=== PATIENT | male | born 2000 | race Caucasian/White ===

== ENCOUNTER 2024-12-17 09:26 | Outpatient (REF) | payer BC, SELFPAY ==
[2024-12-17 11:31] LABS: MANUAL DIFF FLAG NO
[2024-12-17 11:52] LABS: Hematocrit 44.9 % (42.0-52.0); Hemoglobin 15.8 g/dl (14.0-18.0); Imm Gran Abs Auto 0.04 X10*3/uL (0.00-0.03); Imm Gran Pct Auto 0.4 % (0.0-0.4); Lymphocytes Absolute Auto 1.3 X10*3/uL (1.2-4.9); Mean Corpuscular HGB Conc 35.2 g/dl (31.0-36.0); Mean Corpuscular Hemoglobin 32.5 pg (27.0-33.0); Mean Corpuscular Volume 92.4 fL (80.0-98.0); NRBC Abs Auto 0.000 X10*3/uL (0.0-0.012); NRBC Pct Auto 0.0 /100WBC (0.0-0.2); Platelet Count 223 X10*3/uL (160-400); Red Blood Count 4.86 X10*6/uL (4.60-5.80); White Blood Count 9.5 X10*3/uL (4.8-10.8)
[2024-12-17 12:16] LABS: Appearance Urine Clear; Glucose Urine UA Negative (Negative); PH 6.0 (5.0-9.0); Specific Gravity - Urine 1.025 (1.005-1.025)
[2024-12-17 12:51] LABS: Alanine Aminotransferase 42 U/L (0-40); Albumin Level 5.3 g/dL (3.5-5.0); Alkaline Phosphatase 111 U/L (39-117); Anion Gap 15 (12-20); Aspartate Amino Transferase 33 U/L (5-37); Blood Urea Nitrogen 12 mg/dL (9-16); Calcium 10.2 mg/dL (8.4-10.2); Carbon Dioxide 27 mmol/L (22-29); Chloride 104 mmol/L (96-108); Cholesterol 201 mg/dL (<200); Estimated Glomerular Filt Rate > 60; HDL Cholesterol 53 mg/dL (>40); Potassium 4.1 mmol/L (3.3-5.1); Sodium 142 mmol/L (135-145); Total Protein 8.5 g/dL (6.5-8.0); Triglycerides 104 mg/dL (<150)
[2024-12-18 19:38] LABS: Transglutaminase Ab IgG <1.0 U/mL
== END 2024-12-17 09:27 | disposition home or self-care (01) ==
LOC: HO.LAB 09:26
DX: K52.9 Noninfective gastroenteritis and colitis, unspecified (principal); K92.1 Melena; R14.0 Abdominal distension (gaseous); R03.0 Elevated blood-pressure reading, without diagnosis of hypertension; R19.5 Other fecal abnormalities; F41.9 Anxiety disorder, unspecified; B07.0 Plantar wart; Z76.89 Persons encountering health services in other specified circumstances
CPT/HCPCS: 36415; 80053; 80061; 81003; 84443; 85025; 85652; 86141; 86364; 96127

== ENCOUNTER 2024-12-17 09:26 | Outpatient (AMB) | payer BC, SELFPAY ==
[2024-12-17 09:33] VITALS: BP 160/90; PULSE 105; RESP 18; TEMP 36.3; O2SAT 99; BMI 29.4
--- NOTE | 2024-12-17 09:33 | MHC.PC.OV ---
Vital Signs 12/17/24 09:33 Height 5 ft 11 in Weight 211 lb BMI 29.4 BP 160/90 H Blood Pressure Location Rt brachial Position Sitting Respiration 18 Pulse 105 H Pulse Source Pulse Oximeter Temp 97.3 F Temp Source Temporal Artery Scan Pulse Oximetry (%) 99 Oxygen Delivery Method Room Air Intake Visit Reasons: establish care Emergency Room Specialist Required: No Accompanied by: Self / Same As Patient Allergies No Known Allergies Allergy (Verified 12/17/24 10:11) Medication List - Last Reconciled 12/17/24 by DERIAN Duvall No Known Home Meds Tobacco use date assessed: 12/17/24 Dental Screening Dental Screen Date: 12/17/24 Did you have a dental visit in the last 12 months?: Yes Did you have a dental problem in the last 6 months where you did not have access to dental care?: No Was dental information given to patient?: Patient has dentist HPI establish care HPI Details [facility] PCP:[facility] Last visit: Last PE:1999 when he was 16 years old Specialist: no OBGYN:n/a Past medical history: anxiety, blood red in the stool/toilet will happens for couple days, then every month and half. Medications: Family HX:anxiety and depression mother, Father HTN Problem: The patient is a 24-year-old male presenting to [facility] with concerns of rectal bleeding and plantar warts. The patient reports experiencing rectal bleeding intermittently, with bright red blood observed in the toilet during bowel movements. This bleeding occurs sporadically, sometimes lasting for a few days and recurring approximately every month and a half. He denies any associated pain during bowel movements but mentions occasional stomach discomfort resembling hunger pangs. The patient also reports the presence of plantar warts on the soles of his feet, which he attempted to treat with cahy-ehk-qahbtca remedies without success. He has been advised to seek podiatric consultation for further management. The patient has a history of anxiety, which he believes contributes to elevated blood pressure readings during medical visits. He has not been on any formal treatment for anxiety but has previously engaged in phone therapy sessions during periods of high stress. His family history includes anxiety and depression on his mother's side, as well as hypertension. [facility] Medical History (Updated 12/19/24 @ 21:43 by DERIAN Duvall) History of flexible sigmoidoscopy Anxiety Family History Father Age: 61 Hypertension Mother Age: 59 Depression Anxiety Social History Household Members: Family Both parents involved: Yes Housing: House Alcohol intake: current Patient Tobacco Use Status: Never used Tobacco e-Cigarette/Vaping Use: Never Used service: No Current occupational status: employed Current occupation: [employer] Cognitive needs: No Hearing needs: No Vision needs: Yes Questionnaire PHQ-9 Over the last 2 weeks, how often have you been bothered by any of the following problems? 1. Little interest or pleasure in doing things: not at all 2. Feeling down, depressed, or hopeless: not at all 3. Trouble falling or staying asleep, or sleeping too much: several days 4. Feeling tired or having little energy: several days 5. Poor appetite or overeating: several days 6. Feeling bad about yourself - or that you are a failure or have let yourself or your family down: not at all 7. Trouble concentrating on things, such as reading the newspaper or watching television: not at all 8. Moving or speaking so slowly that other people could have noticed. Or the opposite - being so fidgety or restless that you have been moving around a lot more than usual: not at all 9. Thoughts that you would be better off or of hurting yourself in some way: not at all Total score: 3 Depression Screening Interpretation: Negative Depression Screening Done: Yes 79257 - PHQ-9 Billing: Yes Source: Developed by Drs. Michael Clinton, Domitila Thorne, Peng Oshea and colleagues, with an educational christiane from [employer]. Thrive Questionnaire Date Thrive assessed: 12/17/24 I am a: Patient What is your living situation today?: I have a steady place to live Within the past 12 months, did the food you bought not last and you didn't have the money to get more?: Never true Within the past 12 months, did you worry whether your food would run out before you got money to buy more?: Never true Do you have trouble paying for medicines?: No Do you have trouble getting transportation to medical appointments?: No Do you have trouble paying your heating and electricity bill?: No Do you have trouble taking care of your child, family member or friend?: No Do you have trouble with day-to-day activities such as bathing, preparing meals, shopping, managing finances, etc.?: No Are you currently unemployed and looking for a job?: No Are you interested in more education?: No Please select the resources that you would like help with: None Currently or been in a relationship where the following occur: No concerns reported THRIVE Score: 0 AUDIT C Alcohol Use Questionnaire (AUDIT-C) 1. How often do you have a drink containing alcohol?: 2-3 times a week 2. How many drinks containing alcohol do you have on a typical day when you are drinking?: 3 or 4 3. How often do you have six or more drinks on one occasion?: Never Total Score: 4 DINESH-7 AMB Questionnaire DINESH-7 Date DINESH - 7 assessed: 12/17/24 Feeling nervous, anxious, or on edge: 2 = More than half the days Not being able to stop or control worryin = Not at all Worrying too much about different things: 1 = Several days Trouble relaxin = Several days Being so restless that it is hard to sit still: 0 = Not at all Becoming easily annoyed or irritable: 0 = Not at all Feeling afraid as if something awful might happen: 1 = Several days Total DINESH-7 score (0-4 normal; 5-9 mild; 10-14 moderate; 15-21 severe): 5 Source: Developed by Drs. Michael Clinton, Domitila Thorne, Peng Oshea and colleagues, with an educational christiane from [employer]. DINESH-7 Assessment Billing DINESH-7 Assessment Tool: DINESH-7 Assessment 74155 Review of Systems Const Denies headache(s) Eyes Denies loss of vision ENT Denies vertigo, Denies dizziness, Denies headache(s) and Denies sore throat Card Denies chest pain, Denies leg edema and Denies lightheadedness Resp Denies cough, Denies hemoptysis and Denies wheezing GI Denies abdominal pain, Denies melena, Reports hematochezia (intermittent), Denies constipation, Denies diarrhea and Denies vomiting Denies dysuria, Denies urinary frequency and Denies urinary urgency Musc Denies arthralgias, Denies joint swelling, Denies numbness and Denies tingling Skin/Breast Reports other (plantar warts) Neuro Denies Abnormal speech present, Denies behavioral changes, Denies vertigo, Denies dizziness, Denies headache(s), Denies loss of vision, Denies memory loss, Denies numbness and Denies tingling Psych Reports anxiety, Denies behavioral changes, Denies depression, Denies memory loss and Denies panic attacks Bijan/Lymph Denies easy bleeding and Denies easy bruising Aller/Immun Denies wheezing Physical exam (Primary Care) Vital Signs: Last Vital Signs Temp 97.3 F 12/17/24 09:33 Pulse 105 H 12/17/24 09:33 Resp 18 12/17/24 09:33 BP 160/90 H 12/17/24 09:33 Pulse Ox 99 12/17/24 09:33 Oxygen Delivery Method Room Air 12/17/24 09:33 BMI result Body Mass Index 29.4 Tobacco/Smoking Status: Tobacco use Status Tobacco use date assessed 12/17/24 12/17/24 09:52 Patient Tobacco Use Status Never used Tobacco 12/17/24 09:52 e-Cigarette/Vaping Use Never Used 12/17/24 09:52 PHQ-9: PHQ-9 Score PHQ-9: Total score 3 12/17/24 10:16 Depression Screening Interpretation: Negative Thrive Assessment: Date of Thrive Assessment Date Thrive assessed 12/17/24 12/17/24 09:52 Currently or been in a relationship where the following occur: No concerns reported Const General: healthy appearing, no acute distress, alert and awake Nutritional Appearance: well nourished Orientation/consciousness: oriented to person, oriented to place and oriented to time HENMT Ears: TM's normal bilaterally General nose exam: Normal nasal mucous membranes and turbinates present Eyes Conjunctivae: conjunctivae normal Sclerae: sclerae normal Pupils: Equal, round and reactive pupils present Neck Neck: Yes no lymphadenopathy and Yes no JVD Thyroid: Thyroid normal Carotids: no bruits Resp Effort & Inspection: normal respiratory effort and not tachypneic Auscultation: no crackles, no rales, no rhonchi and no wheezes Cardio Rate: tachycardic Rhythm: regular rhythm Heart sounds: no murmurs and normal S1 and S2 GI Palpation (GI): Soft to palpation, nontender, no hepatomegaly and no splenomegaly Auscultation: normal bowel sounds General: Yes no CVA tenderness Back/Spine/Pelvis Back: no CVA tenderness Skin General skin exam: dry skin Lesions: lesion noted (bilateral feet plantar warts) Neuro General: oriented to person, oriented to place and oriented to time Cranial nerves: Yes Equal, round and reactive pupils present Speech: No Abnormal speech present Gait exam (Neuro): Normal gait present Motor exam (neuro): no tremor noted Extrem Right upper extremity: full ROM Left upper extremity: full ROM Right lower extremity: full ROM; no edema Left lower extremity: full ROM; no edema Psych Mental Status: mental status grossly normal Speech and movement: Normal speech and movement present Affect: normal affect Attitude: cooperative Thought process: Normal thought process present Coding Level of Care Code New Pt Level 4 (71761) Diagnoses Frequent stools K52.9 Elevated blood pressure reading without diagnosis of hypertension R03.0 Anxiety F41.9 Bright red stool R19.5 Bloating R14.0 Plantar warts B07.0 Additional Codes DINEHS-7 Assessment Billing - DINESH-7 Assessment Tool: DINESH-7 Assessment 93756 ([id number]) PHQ-9 - 79140 - PHQ-9 Billing: Yes ([id number]) Time Spent (min) 38 Assessment & Plan Assessment & Plan (1) Frequent stools: Code(s): K52.9 - Noninfective gastroenteritis and colitis, unspecified Category: Medical Plan: Discussed and encouraged the fodmap diet to the patient. Transglutaminase Ab IgG ordered to further evaluate. GI referral placed. (2) Elevated blood pressure reading without diagnosis of hypertension: Code(s): R03.0 - Elevated blood-pressure reading, without diagnosis of hypertension Category: Medical Plan: The patient has elevated blood pressure readings, which may be influenced by anxiety during medical visits. Lifestyle modifications, including reducing alcohol intake, salt intake, work on controlling anxiety and monitoring blood pressure, were recommended. (3) Anxiety: Code(s): F41.9 - Anxiety disorder, unspecified Category: Medical Plan: The patient reports a history of anxiety, which he believes contributes to elevated blood pressure readings during medical visits. He has not been on any formal treatment for anxiety but has previously engaged in phone therapy sessions during periods of high stress. Discussion included the potential use of Hydroxyzine for acute anxiety episodes, with a follow-up planned to reassess the need for ongoing therapy. The patient declines treatment plan. We will continue to monitor. (4) Bright red stool: Code(s): R19.5 - Other fecal abnormalities Category: Medical Plan: The patient reports intermittent rectal bleeding with bright red blood observed in the toilet during bowel movements. Refused guaiac stool test in office. No external hemorrhoid noted on evaluation. Labs ordered to evaluated CBC. A referral to a quarry supervisor dimension stone was recommended for further evaluation, and the patient was advised to monitor the bleeding and seek emergency care if it becomes persistent or dark in color. (5) Bloating: Code(s): R14.0 - Abdominal distension (gaseous) Category: Medical Plan: Discussed and encouraged the fodmap diet to the patient. Transglutaminase Ab IgG ordered to further evaluate. (6) Plantar warts: Code(s): B07.0 - Plantar wart Category: Medical Plan: The patient reports plantar warts on the soles of his feet, which he attempted to treat with hdok-ine-pvniigk remedies without success. A referral to podiatry was recommended for further management, including potential removal of the warts. Orders: Orders Comprehensive [place]. Panel Fast 12/17/24 K92.1 - Melena, R14.0 - Abdominal distension (gaseous), Z76.89 - Persons encountering health services in other specified circumstances UA CC w/rflx Micro + Cult 12/17/24 K92.1 - Melena, R14.0 - Abdominal distension (gaseous), Z76.89 - Persons encountering health services in other specified circumstances TSH reflex Free T4 12/17/24 K92.1 - Melena, R14.0 - Abdominal distension (gaseous), Z76.89 - Persons encountering health services in other specified circumstances CRP High Sensitivity 12/17/24 K92.1 - Melena, R14.0 - Abdominal distension (gaseous), Z76.89 - Persons encountering health services in other specified circumstances Erythrocyte Sedimentation Rate 12/17/24 K92.1 - Melena, R14.0 - Abdominal distension (gaseous), Z76.89 - Persons encountering health services in other specified circumstances Transglutaminase Ab IgG 12/17/24 K92.1 - Melena, R14.0 - Abdominal distension (gaseous), Z76.89 - Persons encountering health services in other specified circumstances Complete Blood Count Auto Diff 12/17/24 K92.1 - Melena, R14.0 - Abdominal distension (gaseous), Z76.89 - Persons encountering health services in other specified circumstances Lipid Panel 12/17/24 K92.1 - Melena, R14.0 - Abdominal distension (gaseous), Z76.89 - Persons encountering health services in other specified circumstances Referrals Gastroenterology Referral K52.9 - Noninfective gastroenteritis and colitis, unspecified, R14.0 - Abdominal distension (gaseous), R19.5 - Other fecal abnormalities Podiatry Referral B07.0 - Plantar wart
--- OUTSIDE RECORDS SUMMARY | 2024-12-17 10:28 | XMS_ITS | Encounter Summary ---
Author Organization [facility] Address [address] [place] [id number] Phone Care Team Providers Care Retail Selling Specialist Name Role Phone Unavailable Primary Care Provider Unavailabl e Reason for Visit * Reason Onset Date Comments Medical Records Request 12/16/2024 Encounter Details Date Type Department Care Team (Late st Contact Info) Description 12/16/2024 [facility]phone [facility] [address] [address] Medical Records Request Social History Tobacco Use Types Packs/Day Years Used Date Smoking Tobacco: Never Smokeless Tobacco: Never Alcohol Use Standard Drinks/Week Comments No 0 (1 standard drink = 0.6 oz pur e alcohol) Hunger/Food Answer Date Recorded In the last 12 months, did y ou or your family ever eat less than you felt you should because there wasn't enough money for food? No 04/29/2019 Stable Housing Answer Date Recorded Are you worried that in the next 2 months you may not have stable housing? No 04/29/2019 Transportation Concerns Answer Date Rec orded In the last 12 months, have you or your family ever had to go without healthcare because you didn't have a way to get there? No 04/29/2019 Hazards in Home Answer Date Recorded Think about the place you li ve. Do you have problems with any of the following? Pests (mice or roaches), mold, no/not working smoke detectors, water leaks, no window guards. No 2019 Financing Utilities Answer Date Recorde d In the last 12 months, has t he electric, gas, oil, or water company threatened to shut off your services in your home? No 04/29/2019 Safety at Home Answer Date Recorded Are you or your family worried about feeling saf e in your home? No 04/29/2019 Outside Support Answer Date Recorded Do you feel that you need mo re support from other people or programs to help you care for yourself or your family? No 04/29/2019 Understanding Health Concerns Answer Da te Recorded Do you need help understandi ng your or your child's healthcare needs (diagnosis, medications, plan, etc.)? No 04/29/2019 Financing Health Concerns Answer Date R ecorded In the last 12 months, was t here a time when your child needed to see a doctor or get medications or supplies but could not because of cost? No 04/29/2019 Missing School or Work Answer Date Anirudh rded Did you or your child miss s chool or work because of a health problem that could have been avoided? No 04/29/2019 Sex and Gender Information Value Date Recorded Sex Assigned at Not on file Legal Sex Male 6:10 PM EDT Gender Identity Not on file Sexual Orientation Straight 04/29/2019 10 :30 AM EST documented as of this encounter Miscellaneous Notes * Telephone Encounter - Eugenia Edwards MA - 12/16/2024 2:46 PM EDT Mom dropped off medical records release. Scanned and placed in bin for warren/beti. documented in this encounter Plan of Treatment Not on file documented as of this encounter Visit Diagnoses Not on filedocumented in this encounter
--- OUTSIDE RECORDS SUMMARY | 2024-12-17 10:28 | XMS_ITS | Encounter Summary ---
Author Organization [facility] Address [address] [place] [phone] Phone Care Team Providers Care Nutrition Partner Name Role Phone Michael Varela MD Primary Care Provider Encounter Details Date Type Department Care Team (Late st Contact Info) Description 09/08/2017 Conversion [facility]counter [id number] [place] [address] Darrius Wolf MD [address] [place] [address] Social History Tobacco Use Types Packs/Day Years Used Date Smoking Tobacco: Never Assessed Sex and Gender Information Value Date Recorded Sex Assigned at Not on file Legal Sex Male 6:10 PM EDT Gender Identity Not on file Sexual Orientation Straight 04/29/2019 10 :30 AM EST documented as of this encounter Plan of Treatment Not on file documented as of this encounter Visit Diagnoses Not on filedocumented in this encounter Care Teams Nutrition Partner Relationship Specialty Start Date End Date Michael Varela MD [address] [place] [address] PCP - General Pediatrics 04/29/19 06/02/24 documented as of this encounter
--- OUTSIDE RECORDS SUMMARY | 2024-12-17 10:28 | XMS_ITS | Encounter Summary ---
Author Organization [facility] Address [address] [place] [address] Phone Care Team Providers Care Footwear Sales Coordinator Name Role Phone Pcp, Unknown Primary Care Provider Unavailabl e Encounter Details Date Type Department Care Team (Late st Contact Info) Description 09/12/2022 Procedure Pass [facility], [facility] Scan - [address] [address] Social History Tobacco Use Types Packs/Day Years Used Date Smoking Tobacco: Never Assessed Education Answer Date Recorded Are you interested in more education? Not on maurice e 09/03/2022 Are you concerned about learning? Not on file 09/03/2022 No 09/03/2022 No 09/03/2022 Digital Access Answer Date Recorded No 09/12/2022 No 09/12/2022 No 09/12/2022 Reliable internet access at home? Not on file 09/12/2022 Device with a working camera? Not on file Intimate Partner Violence Answer Date R ecorded Are you denied basic needs s uch as food, clothing, or medical care? No 09/12/2022 In the past 12 months have y ou been in a relationship with a person who hurts, threatens, or tries to control you? No 09/12/2022 Are you denied basic needs s uch as food, clothing, or medical care? No 09/12/2022 In the past 12 months have y ou been in a relationship with a person who hurts, threatens, or tries to control you? No 09/12/2022 Sex and Gender Information Value Date Recorded Sex Assigned at Not on file Legal Sex Male 3:31 PM EDT Gender Identity Not on file Sexual Orientation Not on file documented as of this encounter Functional Status * Calculated C-SSRS Risk Score (Lifetime/Recent) Answer Date of Assessment Author No Risk Indicated 09/12/2022 1:42 AM EDT Bing Hilton RN * [place] Suicide Severity Rating Scale (Screener/Recent Self-Report) Question Answer Date of Assessment Author 1. Wish to be (Past 1 Month) No 023 1:42 AM ETIENNET Bing Hilton RN 2. Non-Specific Active Suici raquel Thoughts (Past 1 Month) No 09/12/2022 1:42 AM EDT Bing Hilton RN 6. Suicidal Behavior (Lifetime) No 3 1:42 AM ETIENNET Bing Hilton RN documented as of this encounter Plan of Treatment Not on file documented as of this encounter Visit Diagnoses Not on filedocumented in this encounter Care Teams Footwear Sales Coordinator Relationship Specialty Start Date End Date Pcp, Unknown PCP - General 09/12/22 documented as of this encounter Additional Source Comments The information contained in this document represents components of the legal health record. It is not the complete legal health record.[facility]
--- OUTSIDE RECORDS SUMMARY | 2024-12-17 10:28 | XMS_ITS | Encounter Summary ---
Author Organization [facility] Address [address] [facility] [address] [place] [phone] Phone Care Team Providers Care Golf Ball Winder Name Role Phone Pcp, Unknown Primary Care Provider Unavailabl e Encounter Details Date Type Department Care Team (Late st Contact Info) Description 08/31/2022 Procedure [facility], [address] [address] Social History Tobacco Use Types Packs/Day Years Used Date Smoking Tobacco: Never Assessed Education Answer Date Recorded Are you interested in more education? Not on maurice e 09/03/2022 Are you concerned about learning? Not on file 09/03/2022 No 09/03/2022 No 09/03/2022 Sex and Gender Information Value Date Recorded Sex Assigned at Not on file Legal Sex Male 3:31 PM EDT Gender Identity Not on file Sexual Orientation Not on file documented as of this encounter Plan of Treatment Not on file documented as of this encounter Visit Diagnoses Not on filedocumented in this encounter Care Teams Golf Ball Winder Relationship Specialty Start Date End Date Pcp, Unknown PCP - General 09/12/22 documented as of this encounter Additional Source Comments The information contained in this document represents components of the legal health record. It is not the complete legal health record.[facility]
--- OUTSIDE RECORDS SUMMARY | 2024-12-17 10:28 | XMS_ITS | Clinical Summary ---
Author Organization [facility] Address [address] [place] [id number] Phone Care Team Providers Care Paper Machine Backtender Name Role Phone Unavailable Primary Care Provider Unavailabl e Allergies No known active allergies Medications MINOCYCLINE 50 MG capsuleIndicati ons:Acne vulgaris take 1 capsule by mouth twice a day 60 capsule 2 9 Active Additional Information Patient not taking.Reported on 04/29/2019 Active Problems Problem Noted Date Diagnosed Date Anxiety 04/29/2019 Assessment & Plan (04/29/2019 10:34 AM EST): Discussed treatment options including therapy and/or meds. Discussed need for follow up if meds are started. At this time he does not think he would be able to return to me for this. Encouraged him to continue to meet with [employer] if this is something he wants additional help with or he can return to me at any time. Encounters Date Type Department Care Team Description 12/16/2024 [facility]phone [facility] [address] [address] Eugenia Edwards [place] Medical Records Request from Last 3 Months Immunizations Immunization Administration Dates Next Due DTaP 12/08/2004, 1,06/06/2000,04/24,02/09/2000 HPV, Quadrivalent 07/16/2014,03/12/2014,01/06/20 14 Hep A, ped/adol 03/11/2018,03/07/2017 Hep B, ped/adol 09/13/2000,01/05/2000,1999 Hib (PRP-T) 03/05/2001, 1,04/24/2000,02/08 IPV 12/08/2004, 1,04/24/2000,02/08 Influenza, intradermal, quad rivalent, preservative free 02/20/2019,03/11/2018 MMR 12/08/2003,12/10/2000 Meningococcal B Bexsero 04/29/2019 Meningococcal Conj (Menactra) MCV4P 02/08/2016,0 06/01/2011 Pneumococcal Conjugate 03/05/2001,2000,04/24/2000,02/08 Tdap 06/01/2011 Varicella 03/24/2007,12/10/2000 Family History Medical History Relation Name Comments Hypertension Father COPD Maternal Grandfather No Known Problems Mother No Known Problems Sister Amairani Relation Name Status Comments Father Alive Maternal Grandfather Maternal Grandmother Alive Mother Alive Paternal Grandfather Alive Paternal Grandmother Alive Sister Amairani Alive Social History Tobacco Use Types Packs/Day Years [...] Orientation Straight 04/29/2019 10 :30 AM EST Last Filed Vital Signs Vital Sign Reading Time Taken Comments Blood Pressure 120/76 04/29/2019 9:53 AM EST Pulse - - Temperature 36.6 C (97.8 F) 06/12/2017 12:00 AM EST Respiratory Rate - - Oxygen Saturation - - Inhaled Oxygen Concentration - - Weight 74.2 kg (163 lb 9.6 oz) 04/29/2019 9:53 A M EST Height 179.1 cm (5' 10.5 ) 04/29/2019 9:53 AM ES T Body Mass Index 23.14 04/29/2019 9:53 AM EST Plan of Treatment Health Maintenance Due Date Last Done Comments Men B Vaccine (2 of 2 - Bexs ero SCDM 2-dose series) 10/28/2019 04/29/2019 COVID-19 Vaccine (2023-2 5 season) 2023 05/09/2021, 09/23/2020, 08/18/2020 Influenza Vaccines (#1) 2024 05/09/19, 02/20/2019, 03/11/2018, Additional history exists DTaP,Tdap,and Td Vaccines (8 - Td or Tdap) 11/29/2031 11/28/2021, 06/01/2011, 12/08/2004, Additional history exists Hepatitis B Vaccines Completed 09/13/2000, 01/05/2000, 1999 HIB Vaccines Completed 03/05/2001, 05/23, 04/24/2000, Additional history exists Pneumococcal Vaccine Completed 03/05/2001, 06/06/2000, 04/24/2000, Additional history exists MMR Vaccines Completed 12/08/2003, 12/10/2000 IPV Vaccines Completed 12/08/2004, 12/21, 09/13/2000, Additional history exists Varicella Vaccines Completed 03/24/2007, 12/10/2000 HPV Vaccines Completed 07/16/2014, 02/21, 01/05/2014 Meningococcal Vaccine Completed 02/08/2016, 012 Hepatitis A Vaccines Completed 03/11/2018, 03/07/20 17 Insurance [facility] PPO
--- OUTSIDE RECORDS SUMMARY | 2024-12-17 10:28 | XMS_ITS | Encounter Summary ---
Author Organization [facility] Address [address] [place] [phone] Phone Care Team Providers Care Supervisor Lathing Name Role Phone Pcp, Unknown Primary Care Provider Unavailabl e Encounter Details Date Type Department Care Team (Late st Contact Info) Description 09/12/2022 Procedure Pass [facility], Ct Scan - [address] [address] Social History Tobacco Use Types Packs/Day Years [...] 1:42 AM EDT Bing Hilton RN * [place] Suicide Severity Rating Scale (Screener/Recent Self-Report) Question [...] on filedocumented in this encounter Care Teams Supervisor Lathing Relationship Specialty Start Date End Date Pcp, Unknown PCP - General 09/12/22 documented as of this encounter Additional Source Comments The information contained in this document represents components of the legal health record. It is not the complete legal health record.[facility]
--- OUTSIDE RECORDS SUMMARY | 2024-12-17 10:28 | XMS_ITS | Encounter Summary ---
Author Organization [facility] Address [address] [place] [id number] Phone Care Team Providers Care Operations Intelligence Superintendent Name Role Phone Michael Varela MD Primary Care Provider [phone] Reason for Visit * Reason Comments Med Refill Encounter Details Date Type Department Care Team (Late st Contact Info) Description 01/16/2018 Refill [facility] [address] [place] [address] Michael Varela MD [address] [place] [id number] Acne vulgaris Social History Tobacco Use Types Packs/Day Years Used Date Smoking Tobacco: Never Assessed Sex and Gender Information Value Date Recorded Sex Assigned at Not on file Legal Sex Male 6:10 PM EDT Gender Identity Not on file Sexual Orientation Straight 04/29/2019 10 :30 AM EST documented as of this encounter Miscellaneous Notes * Telephone Encounter - Michael Varela MD - 01/16/2018 2:47 PM EDT Prescriptions reviewed and eprescribed to pharmacy * Telephone Encounter - Adelita Sadler LPN - 01/16/2018 10:08 AM EDT Last refill was 12/18/17 Last office visit was 06/12/17 for acne. Refill request for Minocycline 50 mg caps, take one BID Send to the pharmacy on file. documented in this encounter Plan of Treatment Not on file documented as of this encounter Visit Diagnoses Diagnosis Acne vulgaris Other acne documented in this encounter Care Teams Operations Intelligence Superintendent Relationship Specialty Start Date End Date Michael Varela MD [address] [place] [address] PCP - General Pediatrics 04/29/19 06/02/24 documented as of this encounter
--- OUTSIDE RECORDS SUMMARY | 2024-12-17 10:29 | XMS_ITS | Clinical Summary ---
Author Organization [facility] Address [address] [place] [address] Phone Care Team Providers Care Clinical Laboratory Service Teacher Name Role Phone Pcp, Unknown Primary Care Provider Unavailabl e Allergies No known active allergies Social History Tobacco Use Types Packs/Day Years [...] on file Sexual Orientation Not on file Last Filed Vital Signs Vital Sign Reading Time Taken Comments Blood Pressure 141/84 09/12/2022 4:03 AM EDT Pulse 129 09/12/2022 4:03 AM EDT Temperature 36.7 C (98.1 F) 09/12/2022 1:36 AM EDT Respiratory Rate 18 09/12/2022 1:36 AM EDT Oxygen Saturation 98% 09/12/2022 4:03 AM EDT Inhaled Oxygen Concentration - - Weight 102.1 kg (225 lb) 09/12/2022 1:36 AM EDT Height 177.8 cm (5' 10 ) 09/12/2022 1:36 AM EDT Body Mass Index 32.28 09/12/2022 1:36 AM EDT Plan of Treatment Not on file Medical Devices Not on file Insurance [employer] PPO [employer] PPO [employer] PPO [employer] PPO [employer] PPO [employer] PPO Care Teams Clinical Laboratory Service Teacher Relationship Specialty Start Date End Date Pcp, Unknown PCP - General 09/12/22 Additional Source Comments The information contained in this document represents components of the legal health record. It is not the complete legal health record.[facility]
== END 2024-12-17 10:46 | disposition home or self-care (01) ==
DX: K52.9 Noninfective gastroenteritis and colitis, unspecified (principal); R03.0 Elevated blood-pressure reading, without diagnosis of hypertension; F41.9 Anxiety disorder, unspecified; R19.5 Other fecal abnormalities; R14.0 Abdominal distension (gaseous); B07.0 Plantar wart

== ENCOUNTER 2025-01-28 11:37 | Outpatient (AMB) | payer BC, SELFPAY ==
[2025-01-28 11:51] VITALS: BP 160/98; PULSE 110; RESP 18; TEMP 36.4; O2SAT 96; BMI 30.3
--- NOTE | 2025-01-28 11:51 | MHC.PC.OV ---
Vital Signs 01/28/25 11:51 Height 5 ft 11 in Weight 217 lb 6 oz BMI 30.3 BP 160/98 H Blood Pressure Location Lt brachial Position Sitting Respiration 18 Pulse 110 H Pulse Source Pulse Oximeter Temp 97.5 F Temp Source Temporal Artery Scan Pulse Oximetry (%) 96 Oxygen Delivery Method Room Air Intake Visit Reasons: PHYSICAL Agricultural Chemicals Inspector Required: No Accompanied by: Self / Same As Patient Allergies No Known Allergies Allergy (Verified 01/28/25 12:02) Medication List - Last Reconciled 01/28/25 by DERIAN Duvall No Known Home Meds Tobacco use date assessed: 01/28/25 Dental Screening Dental Screen Date: 01/28/25 Did you have a dental visit in the last 12 months?: Yes Did you have a dental problem in the last 6 months where you did not have access to dental care?: No Was dental information given to patient?: Patient has dentist HPI PHYSICAL HPI Details The patient is a 24-year-old male presenting for annual physical and lab review Dentist: up to date Eye: up to date Snellen: Right: Left: Corrected vision: yes, glasses STI screening:n/a Colonoscopy:n/a Pap Smer:n/a PHQ-9: Flu: has not in the last couple of years COVID: x3 Tdap: 2021 Diet: regular Exercise:No exercise at this time The patient is presenting with elevated blood pressure and anxiety. He reports anxiety, particularly when visiting the clinic, which may contribute to elevated blood pressure readings. He was advised to monitor his blood pressure at home to determine if anxiety is affecting his readings. The patient has a history of elevated liver enzymes, noted during the current visit. He consumes alcohol a few days a week, typically three to four drinks per sitting, which may contribute to liver enzyme elevation. He was advised to moderate alcohol intake and will have liver enzymes rechecked in three months. The patient reported gastrointestinal symptoms potentially related to lactose intolerance. He experimented with dairy products and noted significant discomfort after consuming cream cheese and cottage cheese, which improved upon removal of dairy from his diet. A referral to gastroenterology was made for further evaluation on his previous visit. The patient experiences frequent mild back pain, described as an ache, likely related to prolonged sitting and poor posture. He was advised on the importance of maintaining good posture to alleviate symptoms. The patient has elevated cholesterol levels, with LDL cholesterol at 128 mg/dL. He was advised to limit intake of fried foods, red meat, shellfish, egg yolks, and dairy products to manage cholesterol levels. [facility] Medical History (Updated 01/28/25 @ 13:27 by DERIAN Duvall) History of flexible sigmoidoscopy Anxiety Family History Father Age: 61 Hypertension Mother Age: 59 Depression Anxiety Social History Household Members: Family Both parents involved: Yes Housing: House Alcohol intake: current Patient Tobacco Use Status: Never used Tobacco e-Cigarette/Vaping Use: Never Used service: No Current occupational status: employed Current occupation: [employer] Cognitive needs: No Hearing needs: No Vision needs: Yes Questionnaire Thrive Questionnaire Date Thrive assessed: 12/16/24 I am a: Patient What is your living situation today?: I have a steady place to live Within the past 12 months, did the food you bought not last and you didn't have the money to get more?: Never true Within the past 12 months, did you worry whether your food would run out before you got money to buy more?: Never true Do you have trouble paying for medicines?: No Do you have trouble getting transportation to medical appointments?: No Do you have trouble paying your heating and electricity bill?: No Do you have trouble taking care of your child, family member or friend?: No Do you have trouble with day-to-day activities such as bathing, preparing meals, shopping, managing finances, etc.?: No Are you currently unemployed and looking for a job?: No Are you interested in more education?: No Please select the resources that you would like help with: None Currently or been in a relationship where the following occur: No concerns reported THRIVE Score: 0 DINESH-7 AMB Questionnaire DINESH-7 Date DINESH - 7 assessed: 12/17/24 Source: Developed by Drs. Michael Clinton, Domitila Thorne, Peng Oshea and colleagues, with an educational christiane from [employer]. Review of Systems Const Denies headache(s) Eyes Denies loss of vision ENT Denies vertigo, Reports dizziness, Denies headache(s) and Denies sore throat Card Denies chest pain, Denies leg edema and Denies lightheadedness Resp Denies cough, Denies hemoptysis and Denies wheezing GI Denies abdominal pain, Denies melena, Denies constipation, Denies diarrhea and Denies vomiting Denies dysuria, Denies urinary frequency and Denies urinary urgency Musc Reports back pain, Denies arthralgias, Denies joint swelling, Denies numbness and Denies tingling Skin/Breast Reports other (Reports warts bilateral feet) Neuro Denies Abnormal speech present, Denies behavioral changes, Denies vertigo, Reports dizziness, Denies headache(s), Denies loss of vision, Denies memory loss, Denies numbness and Denies tingling Psych Reports anxiety, Denies behavioral changes, Denies depression, Denies memory loss and Denies panic attacks Bijan/Lymph Denies easy bleeding and Denies easy bruising Aller/Immun Denies wheezing Physical exam (Primary Care) Vital Signs: Last Vital Signs Temp 97.5 F 01/28/25 11:51 Pulse 110 H 01/28/25 11:51 Resp 18 01/28/25 11:51 BP 160/98 H 01/28/25 11:51 Pulse Ox 96 01/28/25 11:51 Oxygen Delivery Method Room Air 01/28/25 11:51 BMI result Body Mass Index 30.3 Tobacco/Smoking Status: Tobacco use Status Tobacco use date assessed 01/28/25 01/28/25 11:54 Patient Tobacco Use Status Never used Tobacco 01/28/25 11:54 e-Cigarette/Vaping Use Never Used 01/28/25 11:54 Thrive Assessment: Date of Thrive Assessment Date Thrive assessed 12/16/24 01/28/25 11:54 Currently or been in a relationship where the following occur: No concerns reported Const General: healthy appearing, no acute distress, alert and awake Nutritional Appearance: well nourished Orientation/consciousness: oriented to person, oriented to place and oriented to time HENMT Ears: TM's normal bilaterally General nose exam: Normal nasal mucous membranes and turbinates present Eyes Conjunctivae: conjunctivae normal Sclerae: sclerae normal Pupils: Equal, round and reactive pupils present Neck Neck: Yes no lymphadenopathy and Yes no JVD Thyroid: Thyroid normal Carotids: no bruits Resp Effort & Inspection: normal respiratory effort and not tachypneic Auscultation: no crackles, no rales, no rhonchi and no wheezes Cardio Rate: regular rate Rhythm: regular rhythm Heart sounds: no murmurs and normal S1 and S2 GI Palpation (GI): Soft to palpation, nontender, no hepatomegaly and no splenomegaly Auscultation: normal bowel sounds Skin General skin exam: dry skin Lesions: lesion noted (Plantar warts bilaterally) Neuro General: oriented to person, oriented to place and oriented to time Cranial nerves: Yes Equal, round and reactive pupils present Speech: No Abnormal speech present Gait exam (Neuro): Normal gait present Motor exam (neuro): no tremor noted Deep tendon reflexes (DTR's): Right triceps reflex intensity grade: 2+, Left triceps reflex intensity grade: 2+, Rt Biceps (C5, C6): 2+, Left biceps reflex intensity grade: 2+, Right brachioradialis reflex intensity grade: 2+, Left brachioradialis reflex intensity grade: 2+, Right patellar reflex intensity grade: 2+ and Left patellar reflex intensity grade: 2+ Extrem Right upper extremity: full ROM Left upper extremity: full ROM Right lower extremity: full ROM; no edema Left lower extremity: full ROM; no edema Psych Mental Status: mental status grossly normal Speech and movement: Normal speech and movement present Affect: normal affect Attitude: cooperative Thought process: Normal thought process present Results Reviewed Results Reviewed: Laboratory Tests 12/17/24 12/17/24 11:21 11:29 Sodium 142 Potassium 4.1 Chloride 104 Carbon Dioxide 27 Anion Gap 15 BUN 12 Creatinine 1.05 Estimated GFR > 60 Fasting Glucose 94 Calcium 10.2 Total Bilirubin 1.5 H AST 33 ALT 42 H Alkaline Phosphatase 111 C-React Prot High Sens 3.8 H Total Protein 8.5 H Albumin 5.3 H Triglycerides 104 Cholesterol 201 H LDL Cholesterol, Calc 128 H HDL Cholesterol 53 TSH 0.97 Urine Color Yellow Urine Appearance Clear Urine pH 6.0 Ur Specific [place]ston 1.025 Urine Protein Trace Urine Glucose (UA) Negative Urine Ketones Trace Urine Blood Negative Urine Nitrite Negative Ur Leukocyte Esterase Negative Tiss Transglutamin IgG <1.0 Coding Level of Care Code Est Pt Prev Care 18-39y(12451) Diagnoses Annual physical exam Z00.00 Frequent stools K52.9 Elevated blood pressure reading without diagnosis of hypertension R03.0 Anxiety F41.9 Bright red stool R19.5 Bloating R14.0 Plantar warts B07.0 Elevated liver enzymes R74.8 Hyperlipidemia, unspecified hyperlipidemia type E78.5 Hyperlipidemia type: unspecified Time Spent (min) 41 Assessment & Plan Assessment & Plan (1) Annual physical exam: Code(s): Z00.00 - Encounter for general adult medical examination without abnormal findings Category: Medical Plan: Preventative guidelines and recent labs reviewed with the patient. (2) Frequent stools: Code(s): K52.9 - Noninfective gastroenteritis and colitis, unspecified Category: Medical Plan: On previous visit the patient was encouraged to use the FODMAP diet. Transglutaminase ab IgG was negative. Today patient reports that he thinks that his issue was related to dairy. Reports that he tested the theory by having dairy and was feeling very sick and after eliminated dairy from his diet he has been doing well since. GI referral was placed at previous visit for further evaluation. (3) Elevated blood pressure reading without diagnosis of hypertension: Code(s): R03.0 - Elevated blood-pressure reading, without diagnosis of hypertension Category: Medical Plan: The patient has elevated blood pressure readings, which may be influenced by anxiety during medical visits. Lifestyle modifications, including reducing alcohol intake, salt intake, work on controlling anxiety and monitoring blood pressure, were recommended. The patient was instructed to purchase a blood pressure machine and monitor blood pressure and report the readings through the portal to further evaluate this. (4) Anxiety: Code(s): F41.9 - Anxiety disorder, unspecified Category: Medical Plan: The patient reports a history of anxiety, which he believes contributes to elevated blood pressure readings during medical visits. He has not been on any formal treatment for anxiety but has previously engaged in phone therapy sessions during periods of high stress. Discussion included the potential use of Hydroxyzine for acute anxiety episodes, with a follow-up planned to reassess the need for ongoing therapy. The patient declines treatment plan. We will continue to monitor. (5) Bright red stool: Code(s): R19.5 - Other fecal abnormalities Category: Medical Plan: The patient reports intermittent rectal bleeding with bright red blood observed in the toilet during bowel movements. Refused guaiac stool test in office. No external hemorrhoid noted on evaluation. Normal CBC. A referral to a facilities plant engineer was recommended for further evaluation, and the patient was advised to monitor the bleeding and seek emergency care if it becomes persistent or dark in color. (6) Bloating: Code(s): R14.0 - Abdominal distension (gaseous) Category: Medical Plan: Patient reports that this has been much better since he is in the FODMAP diet and eliminating dairy products. Negative Transglutaminase Ab IgG. (7) Plantar warts: Code(s): B07.0 - Plantar wart Category: Medical Plan: The patient reports plantar warts on the soles of his feet, which he attempted to treat with [id number] remedies without success. A referral to podiatry was recommended for further management, including potential removal of the warts. (8) Elevated liver enzymes: Code(s): R74.8 - Abnormal levels of other serum enzymes Category: Medical Plan: Total bilirubin 1.5, ALT 42 the patient CRP also was elevated at 3.8. The getting the patient had a progressive information process during the time of lab work, which was the same day of the visit which was when the patient was having bloody stools and stomach issues. Since, he has changed his diet by eliminating dairy products and has been doing much better. Denies bloody stools, denies stomach bloatedness and discomfort. We will have the patient repeat these labs and add a GGT to further evaluate the bilirubin. The patient was also reminded to limit alcohol/drugs containing Tylenol or acetaminophen/fatty foods. (9) HLD (hyperlipidemia): Code(s): E78.5 - Hyperlipidemia, unspecified Category: Medical Qualifiers: Hyperlipidemia type: unspecified Qualified Code(s): E78.5 - Hyperlipidemia, unspecified Plan: Triglycerides 104, total cholesterol 201, LDL 128, HDL 53 Discussed lifestyle modifications including dietary changes and physical activity We will repeat lipid panel in 3 months Plan Patient to follow up in 3 months Orders: Orders UA CC w/rflx Micro + Cult 3 Months E78.5 - Hyperlipidemia, unspecified, F41.9 - Anxiety disorder, unspecified, R03.0 - Elevated blood-pressure reading, without diagnosis of hypertension, R74.8 - Abnormal levels of other serum enzymes TSH reflex Free T4 3 Months E78.5 - Hyperlipidemia, unspecified, F41.9 - Anxiety disorder, unspecified, R03.0 - Elevated blood-pressure reading, without diagnosis of hypertension, R74.8 - Abnormal levels of other serum enzymes Lipid Panel 3 Months E78.5 - Hyperlipidemia, unspecified, F41.9 - Anxiety disorder, unspecified, R03.0 - Elevated blood-pressure reading, without diagnosis of hypertension, R74.8 - Abnormal levels of other serum enzymes Gamma Glutamyl Transpeptidase 3 Months E78.5 - Hyperlipidemia, unspecified, F41.9 - Anxiety disorder, unspecified, R03.0 - Elevated blood-pressure reading, without diagnosis of hypertension, R74.8 - Abnormal levels of other serum enzymes Comprehensive [place]. Panel Fast 3 Months E78.5 - Hyperlipidemia, unspecified, F41.9 - Anxiety disorder, unspecified, R03.0 - Elevated blood-pressure reading, without diagnosis of hypertension, R74.8 - Abnormal levels of other serum enzymes Vitamin D 25-OH Total 3 Months E78.5 - Hyperlipidemia, unspecified, F41.9 - Anxiety disorder, unspecified, R03.0 - Elevated blood-pressure reading, without diagnosis of hypertension, R74.8 - Abnormal levels of other serum enzymes
== END 2025-01-28 12:24 | disposition home or self-care (01) ==
LOC: HO.HMCH 11:38
DX: Z00.00 Encounter for general adult medical examination without abnormal findings (principal); K52.9 Noninfective gastroenteritis and colitis, unspecified; R03.0 Elevated blood-pressure reading, without diagnosis of hypertension; F41.9 Anxiety disorder, unspecified; R19.5 Other fecal abnormalities; R14.0 Abdominal distension (gaseous); B07.0 Plantar wart; R74.8 Abnormal levels of other serum enzymes; E78.5 Hyperlipidemia, unspecified